=== PATIENT | female | born 1990 | race Caucasian/White ===

== ENCOUNTER → 2020-12-30 | Outpatient (CLI) | payer OTHER ==
[2020-12-30 14:48] LABS: APPEARANCE, URINE HAZY (CLEAR); BACTERIA, URINE AUTO NEGATIVE (NEGATIVE); BILIRUBIN, URINE AUTO NEGATIVE (NEGATIVE); BLOOD, URINE BLOOD 2+ (NEGATIVE); COLOR, URINE STRAW (YELLOW); GLUCOSE, URINE (UA) AUTO NEGATIVE (NEGATIVE); KETONE, URINE AUTO NEGATIVE (NEGATIVE); LEUKOCYTE ESTERASE, URINE AUTO 1+ (NEGATIVE); NITRITE, URINE AUTO NEGATIVE (NEGATIVE); PROTEIN, URINE AUTO NEGATIVE (NEGATIVE); RBC, URINE AUTO 0 /HPF (0-3); SPECIFIC GRAVITY URINE AUTO 1.003 (1.002-1.035); SQUAMOUS EPITHELIAL CELL UR AU 13 /HPF (0-6); UROBILINOGEN, URINE AUTO 0.2 mg/dL (0.0-2.0); WBC, URINE AUTO 11 /HPF (0-3)
[2020-12-30 15:27] LABS: BLOOD UREA NITROGEN 7 MG/DL (7-18); CALCIUM LEVEL 8.8 MG/DL (8.5-10.1); CARBON DIOXIDE LEVEL 27 MEQ/L (21-32); CHLORIDE LEVEL 108 MEQ/L (98-107); CHOLESTEROL LEVEL 211 MG/DL (<200); CHOLESTEROL RISK RATIO 2.344 (<5); CREATININE FOR GFR 0.64 MG/DL (0.55-1.30); GLOMERULAR FILTRATION RATE > 60.0 (>60); GLUCOSE, FASTING 85 MG/DL (70-100); HDL CHOLESTEROL 90 MG/DL (>40); LDL CHOLESTEROL 95 MG/DL (<100); NON-HDL-C 121 MG/DL; POTASSIUM SERUM 4.4 MEQ/L (3.5-5.1); SODIUM LEVEL 139 MEQ/L (136-145); TRIGLYCERIDES LEVEL 129 MG/DL (<150)
[2020-12-30 15:29] LABS: CREATININE, URINE 22.1 MG/DL; MALB URINE SIEMENS 16.2 MG/L; MAU/CREAT RATIO 73.3 MCG/MG (0.0-30.0)
== END ==
LOC: M LAB 14:09
PROVIDERS: ATTEND Family Medicine
DX: R03.0 Elevated blood-pressure reading, without diagnosis of hypertension (principal)

== ENCOUNTER → 2021-02-19 | Outpatient (CLI) | payer OTHER ==
--- NOTE | 2021-02-19 16:46 | REP ---
INDICATION: HTN COMPARISON: None TECHNIQUE: Real time wu scale ultrasound examination using curved array transducer followed by color Doppler evaluation of the renal vasculature. FINDINGS: The bilateral kidneys are normal in contour, size, and echogenicity. No hydronephrosis, nephrolithiasis, cystic or renal mass lesion identified. Right kidney measures 10.6 x 5.8 x 4.4 cm. Left kidney measures 10.6 x 5.5 x 4.0 cm with suggestions of benign column of Emmanuel. Bladder is grossly unremarkable. Color Doppler evaluation. Peak aortic velocity: 98.8 centimeters/second RIGHT KIDNEY Renal arterial velocity: 108.7 centimeters/second Renal-aortic ratio: 1.1 Intrarenal resistive indices: 0.49-0.59 Intrarenal acceleration times: 0.014-0.08 LEFT KIDNEY Renal arterial velocity: 107.7 centimeters/second Renal-aortic ratio: 1.1 Intrarenal resistive indices: 0.48-0.55 Intrarenal acceleration times: 0.011-0.036 IMPRESSION: 1. Kidneys appear normal. 2. Doppler interegation without sonographic evidence for renal arterial stenosis. <Electronically signed by Epi Zarate > 02/19/21 [id number]
== END ==
LOC: M RAD 07:57
PROVIDERS: ATTEND Family Medicine
DX: I10 Essential (primary) hypertension (principal)